=== PATIENT | female | born 1990 | race Caucasian/White ===

== ENCOUNTER 2025-01-20 16:57 | Emergency (ER) | payer OTHER ==
[~2025-01-20] VITALS: Ht 172.7 cm; Wt 63.5 kg
[2025-01-20 18:34] VITALS: BP 125/84; TEMP 98.4; O2SAT 97
[2025-01-20] MEDS ORDERED: PRED20TA PO (19:33)
[2025-01-20] MEDS ORDERED: CLOT15CR27 TP (19:33)
[2025-01-20] MEDS ORDERED: CETI-194 PO (19:33)
== END 2025-01-20 19:37 | disposition home or self-care (01) ==
LOC: ER 17:18
DX: R09.81 Nasal congestion (principal); B37.31 Acute candidiasis of vulva and vagina; L29.9 Pruritus, unspecified; R07.89 Other chest pain